=== PATIENT | female | born 1950 | race Caucasian/White ===

== ENCOUNTER 2017-10-07 19:35 | Inpatient (IN) | payer MEDICARE ==
[~2017-10-07 19:35] MED LIST: ISOVUE-370 76%-LOCM 1 ML ONE
[2017-10-07 19:51] LABS: #Basophils 0.1 thou/uL (0.0-0.2); #Eosinphils 0.1 thou/uL (0.0-0.7); #Lymphocytes 2.7 thou/uL (1.20-3.40); #Monocytes 0.7 thou/uL (0.11-0.59); #Neutrophils 4.5 thou/uL (1.40-6.50); %Basophils 1.1 % (0.0-1.0); %Eosinophils 1.8 % (0.0-10.0); %Lymphocytes 32.8 % (21.0-51.0); %Neutrophils 55.3 % (42.0-75.0); Hemoglobin 9.3 g/dL (12.0-16.0); Mean Corpuscular HGB CONC 32.7 g/dL (32.0-36.0); Mean Corpuscular Hemoglobin 30.9 pg (27.0-31.0); Mean Corpuscular Volume 94.4 fl (81.0-99.0); Mean Platelet Volume 6.3 fL (7.4-10.4); Platelet Count 420 thou/uL (130-400); RBC Distribution Width 13.5 % (11.5-14.5); White Blood Cell (WBC) Count 8.1 thou/uL (4.8-10.8)
[2017-10-07 20:00] LABS: PTT 29.2 SEC (22.9-36.1); Prothrombin Time 13.2 SEC (12.0-14.7)
[2017-10-07 20:03] LABS: ALT (SGPT) 7 U/L (8-55); AST (SGOT) 17 U/L (5-34); Albumin 3.7 g/dL (3.4-4.8); Alkaline Phosphatase 63 U/L (40-150); Anion Gap 13 mmol/L (10-20); BUN (Urea Nitrogen) 6 mg/dL (9.8-20.1); Bilirubin, Total 0.2 mg/dL (0.2-1.2); CK (CPK) 26 U/L (29-168); Calc. Creatinine Clearance 0 mL/min (70-130); Calcium 9.5 mg/dL (7.8-10.44); Carbon Dioxide 27 mmol/L (23-31); Chloride 102 mmol/L (98-107); Estimated GFR-MDRD Greater than 90; Globulin 2.7 g/dL (2.4-3.5); Glucose 86 mg/dL (80-115); Potassium 3.2 mmol/L (3.5-5.1); Protein, Total 6.4 g/dL (6.0-8.3); Sodium 139 mmol/L (136-145)
[2017-10-07 20:07] LABS: CKMB 0.9 ng/mL (0-6.6); Troponin I Less than 0.010 ng/mL (< 0.028)
[2017-10-07 20:43] LABS: Bilirubin Negative (Negative); Blood, Urine Trace (Negative); Clarity CLEAR (Clear); Glucose, Urine (Dipstick) Negative (Negative); Leukocyte Negative (Negative); Nitrite Negative (Negative); Protein, Urine (Dipstick) Negative (Neg-Trace); Specific Gravity, Urine 1.014 (1.002-1.036); Urobilinogen 0.2 mg/dL (0.2-1.0)
[2017-10-07 20:44] LABS: Bacteria/HPF None Seen HPF (None Seen); Hyaline Casts/LPF 0-3 HYALINE CAST LPF (0-3 Hyaline); RBC/HPF 0-3 HPF (0-3); Squamous Epithelial None Seen HPF (0-3); WBC/HPF 0-3 HPF (0-3)
--- NOTE | 2017-10-07 20:51 | RAD ---
PORTABLE CHEST: 10/07/17 HISTORY: Chest pain, stroke symptoms. Heart size is within normal limits. There are atherosclerotic change of the aorta. Nodular densities in the lung bases are most likely on the basis of nipple shadows. Film with nipple markers would be n eeded for confirmation. Chronic lung changes are seen. IMPRESSION: Chronic lung change. Other findings as noted above. POS: [facility]
--- NOTE | 2017-10-07 20:59 | CT ---
CT OF BRAIN PERFORMED WITHOUT CONTRAST ENHANCEMENT: 10/07/17 HISTORY: Right sided facial droop and weakness starting at 0400. There is generalized ventricular and sulcal prominence. There is fairly pronounced decreased attenuat ion of the periventricular white matter consistent with chronic white matter change. No signs of intracerebral hemorrhage or extra-axial fluid collections. Calcifications in the cavernou s portions of both internal carotid arteries are noted. The mastoid air cells and visualized sinuses are clear. IMPRESSION: No acute intracranial abnormalities. Findings telephoned to Dr. Egan at 1944 hours. POS: [facility]
[2017-10-07] MEDS ORDERED: Adacel (T-DAP) 0.5 ML VIAL ONE (21:31)
--- NOTE | 2017-10-07 22:17 | CT ---
CT ANGIO OF HEAD AND NECK PERFORMED WITH INTRAVENOUS CONTRAST ENHANCEMENT WITH 3D RECONSTRUCTIONS: 10/07/17 HISTORY: Right sided facial droop and weakness. There is a 4 to 5 mm right upper lobe nodular density which is noncalcified. The thyroid gland region is unremarkable. No significant jugular chain adenopathy. The parotid and submandibular glands appea r unremarkable. Parapharyngeal spaces are clear. There are atherosclerotic changes of the aortic arch. There is a separate origin of the left common c arotid artery. On the right side, there is calcified plaque seen along the course of the right common carotid artery and some moderate plaque formation near the origin of the right internal carotid artery with moderat e stenosis of approximately 50 to 60% near the origin. No significant stenosis of the external caroti d artery, although there is moderate plaque formation at the origin. On the left side, there is no significant stenosis of the left common carotid artery or evidence of a ny significant stenosis of the internal or external carotid arteries. The right vertebral artery is dominant with a small left vertebral with the major contribution in the basilar artery from the right vertebral. The origin in the left vertebral is difficult to assess due to venous contamination. There appears to be some mild narrowing. The intracranial portion of this study shows moderate plaque formation in the cavernous portions of b oth internal carotid arteries. There appears to be some areas of mild narrowing of the right internal carotid artery. Difficult to assess due to the plaque. The A1 segment of the right anterior cerebral artery is small which appears to be developmental. M1 segment of the right middle cerebral artery sh ows no stenosis. On the left side, the left A1 segment gives the major contribution to the more peripheral branches of the anterior cerebral arteries. There is no significant narrowing of the M1 or M2 or branches of the left middle cerebral artery. The basilar artery is tortuous with some minimal narrowing in its mid p ortion but no significant stenosis seen. IMPRESSION: 1. Moderate stenosis of 50-60% of the right internal carotid artery near its origin. Difficult t o assess due to calcified plaque. No significant stenosis of the left internal carotid artery. 2. Fairly extensive atherosclerotic plaque within the cavernous portions of both internal caroti d arteries with some narrowing to the cavernous portion of the right internal carotid artery. 3. Atretic A1 segment of the right anterior cerebral artery which is development. No signs of an y intraluminal thrombus. Findings telephoned to Dr. Egan at 2004 hours. POS: [facility]
[2017-10-07] MEDS ORDERED: Ondansetron ODT 4 MG TAB PO PRN (22:58)
[2017-10-07] MEDS ORDERED: Calcium Carbonate 500 MG ChewTAB PO PRN (22:58)
[2017-10-07] MEDS ORDERED: Ondansetron HCl/PF 4 MG/2 ML Vial IVP PRN (22:58)
[2017-10-07] MEDS ORDERED: hydrALAZINE 20 MG/ML VIAL SLOW IVP PRN (22:58)
[2017-10-07] MEDS ORDERED: Nitroglycerin 0.4 MG TAB (25 Tab Bottle) PO PRN (22:58)
[2017-10-07] MEDS ORDERED: Senokot 8.6 MG TAB PO PRN (22:58)
[2017-10-07] MEDS ORDERED: Acetaminophen 325 MG TAB PO PRN (22:58)
[2017-10-07] MEDS ORDERED: Sodium Chloride 0.9% 1,000 ML IV SCH (23:00)
[2017-10-07 23:05] LABS: Magnesium 1.9 mg/dL (1.6-2.6); Phosphorus 4.5 mg/dL (2.3-4.7)
--- NOTE | 2017-10-07 23:28 | HP ---
DATE OF ADMISSION: 10/07/2017 The patient was seen and examined on 10/07/2017. CHIEF COMPLAINT: Stroke-like symptoms. HISTORY OF PRESENT ILLNESS: The patient is a 67-year-old female who presented to the emergency room with sudden onset of right-sided weakness that started around 4:00 a.m. The weakness gradually progressed throughout the day. She presented to the ER around 7:30 p.m. The family also noticed some slurriness of speech. There was no chest pain, palpitations, double vision, blurring of vision reported. She also had some headache and numbness on the right side. No similar symptoms in the past. She is currently not on any antiplatelet agent. She follows a physician in [place]. She is unable to recall the name of her PCP. PAST MEDICAL HISTORY: 1. Hypothyroidism. 2. COPD. 3. Depression. PAST SURGICAL HISTORY: 1. Left knee surgery. 2. Hysterectomy. ALLERGIES: The patient is allergic to CODEINE. CURRENT HOME MEDICATIONS: The patient is unable to recall any of her home medications. She has Advair at the bedside. SOCIAL HISTORY: She smokes up to half pack a day for many years. She also drinks on the daily basis, less than 5 drinks a day. No drug use. Full code. Makes her own decision with the help of family. FAMILY HISTORY: Mother with stroke. REVIEW OF SYSTEMS: The following complete review of systems was negative, unless otherwise mentioned in the HPI or below: Constitutional: Weight loss or gain, ability to conduct usual activities. Skin: Rash, itching. Eyes: Double vision, pain. ENT/Mouth: Nose bleeding, neck stiffness, pain, tenderness. Cardiovascular: Palpitations, dyspnea on exertion, orthopnea. Respiratory: Shortness of breath, wheezing, cough, hemoptysis, fever or night sweats. Gastrointestinal: Poor appetite, abdominal pain, heartburn, nausea, vomiting, constipation, or diarrhea. Genitourinary: Urgency, frequency, dysuria, nocturia. Musculoskeletal: Pain, swelling. Neurologic/Psychiatric: Anxiety, depression. Allergy/Immunologic: Skin rash, bleeding tendency. PHYSICAL EXAMINATION: VITAL SIGNS: Showed temperature 98.3, respirations 12, pulse rate of 74, blood pressure of 177/77 with O2 saturation 97% on room air. GENERAL: A 67-year-old female in no apparent distress. HEENT: Head atraumatic, normocephalic. Sclerae are anicteric. Moist mucous membranes. No oral lesion. NECK: Supple, no JVD, no carotid bruit. LUNGS: Showed scattered rhonchi. No wheezing. Lungs were symmetrical. HEART: S1, S2 present. Regular rate and rhythm. No significant rubs, gallops , or murmurs appreciated. ABDOMEN: Soft, nontender, bowel sounds present. EXTREMITIES: No edema or calf tenderness. NEUROLOGIC: There was 3/5 weakness in the right upper and lower extremity. No significant sensory deficits noted. Her speech is slurry. Cranial nerves II- XII were normal on examination. There was questionable right lower half of the face weakness. Gait was not assessed. PSYCHIATRIC: The patient is alert, awake, oriented x3. SKIN: Warm and dry. LYMPH NODES: No palpable lymph nodes in the neck. PERIPHERAL VASCULAR: Radial pulses palpable bilaterally. MUSCULOSKELETAL: No joint swelling or tenderness. LABORATORY FINDINGS: CBC showed WBC 8.1 with hemoglobin 9.3, and platelet 420. PT, INR, PTT normal range. Troponins were negative. Potassium 3.2 with sodium 139, creatinine 0.57. Urinalysis was negative for wbc, bacteria. Chest x-ray by my review was negative for infiltrate. CT scan of the brain was negative for acute findings. CT angiogram of the head and neck showed moderate stenosis around 50%-60% in the right internal carotid artery. EKG by my review showed sinus rhythm with left axis deviation with poor R-wave progression. IMPRESSION: 1. Acute cerebrovascular accident causing right-sided weakness. The patient is a long-term smoker. She is currently not on any antiplatelet agent. We will start her on aspirin, which she received in the emergency room. We will get a stroke workup. Stroke team consult. 2. Moderate right internal carotid artery stenosis on the CT angiogram. We will continue antiplatelet agent. Primary care physician advised to follow. 3. Ongoing tobacco abuse. The patient was counseled. 4. Daily alcohol use. The patient was counseled. We will start her on thiamine and folic acid. 5. Hypokalemia. We will replace. 6. Chronic obstructive pulmonary disease. We will resume Advair and start p.r.n. medications. 7. Chronic normocytic normochromic anemia. The patient denies any melena or hematochezia. 8. Hypothyroidism. We will resume levothyroxine once confirmed. Plan of care was discussed with the patient in detail, she stated understanding. TESSD
[2017-10-07 23:34] VITALS: BMI 16.4
[2017-10-08] MEDS: NS 0.9% w/ 40 MEQ KCL 1,000 ML IV SCH ×2 (00:33→20:00)
[2017-10-08 05:01] LABS: Cardiac Risk 3.1 (Less than 4.5)
[2017-10-08 05:51] LABS: Folate (Folic Acid) 11.7 ng/mL (7.0-31.4)
[2017-10-08] MEDS: Mometasone/Formoterol 120 PUFF INHALER INH SCH ×2 (06:49→18:17)
[2017-10-08] MEDS: Enoxaparin Sodium 30 MG/0.3 ML SYRINGE SC SCH (08:28)
[2017-10-08] MEDS: Multivit, Therapeutic 1 TAB PO SCH (08:29)
[2017-10-08] MEDS: Aspirin 325 mg Enteric Coated Tablet PO SCH (08:29)
[2017-10-08] MEDS: Folic Acid 1 MG TAB PO SCH (08:29)
[2017-10-08] MEDS: Famotidine 20 MG TAB PO SCH ×2 (08:29→20:27)
[2017-10-08] MEDS: Docusate 100 MG CAP PO SCH ×2 (08:29→20:27)
[2017-10-08] MEDS ORDERED: Prevnar 13-Val Conj/PF 0.5 ML SYRINGE IM ONE ×2 (09:00→10:30)
--- NOTE | 2017-10-08 15:26 | MRI ---
BRAIN MRI WITHOUT CONTRAST: HISTORY: CVA. Right-sided facial droop. COMPARISON: None. TECHNIQUE: Brain MRI is performed without intravenous Gadolinium administration. Multisequential, multiplanar i maging is performed. FINDINGS: The calvarium has a normal T1 marrow signal intensity. Midline brain parenchymal structures are unre markable. No hemorrhage on the axial gradient echo sequence. Central arterial flow voids are maintained. There is restricted diffusion along the posterior left l entiform nucleus and mid portion of the left candelaria radiata. Additional areas of restricted diffusio n are not appreciated. Confluent T2 and FLAIR white matter hyperintensities due to chronic small-vessel ischemic changes are noted. Age appropriate atrophy. Cortical pascal-white matter differentiation is preserved. Ventricles and sulci are patent and symmetric. Adequate aeration of the sinuses and mastoid air cells. IMPRESSION: Acute infarct involving the left lentiform nucleus and left candelaria radiata. POS: [facility]
--- NOTE | 2017-10-08 17:09 | PDOC.PN ---
- Subjective Encounter Start Date: 10/08/17 Encounter Start Time: 16:55 Subjective: f/u for acute ischemic CVA of L lentiform nucleus with R-sided weakness -: and paresthesias. Receiving ASA and Lipitor. Some improvement in facial -: weakness and paresthesias. - Objective Resuscitation Status: Resuscitation Status FULL:Full Resuscitation MAR Reviewed: Yes Vital Signs & Weight: Vital Signs (12 hours) Temp Pulse Pulse Pulse Resp BP BP 10/08/17 15:45 98.8 F 65 18 10/08/17 12:21 65 70 139/76 143/77 H 10/08/17 10:50 97.4 F L 76 20 10/08/17 08:00 98.3 F 72 20 10/08/17 07:33 67 69 144/72 H 155/76 H 10/08/17 07:22 98.3 F 72 20 BP Pulse Ox 10/08/17 15:45 142/74 H 99 10/08/17 12:21 10/08/17 10:50 149/79 H 95 10/08/17 08:00 10/08/17 07:33 10/08/17 07:22 144/72 H 92 L Weight Admit Weight 81 lb 3.2 oz Weight 81 lb 3.2 oz I&O: 10/07/17 10/08/17 10/09/17 06:59 06:59 06:59 Intake Total 60 600 Balance 60 600 Result Diagrams: 10/07/17 19:39 10/07/17 19:39 Additional Labs: Laboratory Tests 10/07/17 10/07/17 10/08/17 19:39 19:39 04:04 Hgb 9.3 L Hct 28.4 L Plt Count 420 H Phosphorus 4.5 Magnesium 1.9 Triglycerides 41 Cholesterol 160 LDL Cholesterol, Calc 101 HDL Cholesterol 51 Vitamin B12 Folate 10/08/17 04:04 Hgb Hct Plt Count Phosphorus Magnesium Triglycerides Cholesterol LDL Cholesterol, Calc HDL Cholesterol Vitamin B12 279 Folate 11.70 Radiology Reviewed by me: Yes (MRI Brain - acute infarct L lentiform nucleus, candelaria radiata) EKG Reviewed by me: Yes (Tele - SR in 70's) Phys Exam - Physical Examination Constitutional: NAD dysarthric, alert, responsive HEENT: PERRLA, moist MMs, sclera anicteric, oral pharynx no lesions Neck: no nodes, no JVD, supple Respiratory: no wheezing, no rales, no rhonchi, clear to auscultation bilateral S1, S2 Cardiovascular: RRR, no significant murmur, no rub, gallop Gastrointestinal: soft, non-tender, no distention, positive bowel sounds Musculoskeletal: no edema, pulses present mild dysarthria R orange picker strength decreased compared to L Neurological: moves all 4 limbs Psychiatric: normal affect, A&O x 3 Skin: no rash, normal turgor, cap refill <2 seconds Dx/Plan (1) Acute CVA (cerebrovascular accident) Code(s): I63.9 - CEREBRAL INFARCTION, UNSPECIFIED Status: Acute Comment: Continue ASA, Lipitor, ? outpt [employer], tobacco cessation (2) Dysarthria Code(s): R47.1 - DYSARTHRIA AND ANARTHRIA Status: Acute Comment: Secondary to #1, see above (3) Dyslipidemia Code(s): E78.5 - HYPERLIPIDEMIA, UNSPECIFIED Status: Chronic Comment: Lipitor 20mg HS (4) Tobacco abuse Code(s): Z72.0 - TOBACCO USE Status: Chronic Comment: Tobacco cessation resources (5) Normocytic anemia Code(s): D64.9 - ANEMIA, UNSPECIFIED Status: Chronic Comment: Likely multifactorial and secondary to poor nutritional status, serial H/H, GI follow up EGD/colonoscopy - Plan plan discussed w/ family, PT/OT, addiction social worker, speech therapy, out of bed/ ambulate, DVT proph w/SCDs Stable overall -: Continue general stroke protocol -: ASA 325mg daily -: Lipitor 20mg HS -: 2D echo pending * Likely home in am 5.04.18
[2017-10-08] MEDS ORDERED: Atorvastatin Calcium 20 MG TAB PO SCH (21:00)
--- NOTE | 2017-10-08 23:46 | CON ---
DATE OF CONSULTATION: 10/09/2017 REFERRING PHYSICIAN: Dr. Yossi Nguyen. REASON FOR CONSULTATION: Stroke. HISTORY OF PRESENT ILLNESS: Ms. Bailey is a pleasant 67-year-old female who has been consi dered for evaluation of stroke. Patient reports that on yesterday morning, she had a sudden onset of right-sided weakness. She noted that her speech was also getting slurred. She also started noticin g numbness and tingling on the right upper and right lower extremity. This prompted her to present t o the [place] [facility] late last night. After arrival to the emergency room, she had a CT s can of the head done, which showed no acute intracranial abnormality. She was admitted for further w orkup. She reports that since the admission to the hospital, her symptoms have improved. She denies any headache, chest pain, palpitation, nausea, vomiting, abdominal pain, weakness in upper and lower extremities. She does have numbness on the right upper and right lower extremity, but that is impro ving. PAST MEDICAL HISTORY: Significant for hypothyroidism, COPD, and depression. PAST SURGICAL HISTORY: Significant for left knee surgery and hysterectomy. SOCIAL HISTORY: She smokes about a half pack per day. She drinks alcohol on a daily basis. She den ies illicit drug use. FAMILY HISTORY: Significant for mother with history of stroke. CURRENT MEDICATIONS: Please review MAR. ALLERGIES: Include CODEINE. REVIEW OF SYSTEMS: As mentioned above in the HPI, is negative. PHYSICAL EXAMINATION: VITAL SIGNS: Blood pressure 142/74, pulse of 65, temperature of 98.8, respirations of 18, O2 sats 99 % on room air. GENERAL: Well-developed, well-nourished female in no apparent distress. RESPIRATORY: Clear to auscultation bilaterally. CARDIOVASCULAR: Regular rate and rhythm. NEUROLOGIC: Mental status: Patient is awake, alert, oriented x3. Speech and language: Fluent spee ch. Cranial nerves: Pupils are 3 mm and reactive. Visual stark are intact. Extraocular muscles a re intact. No nystagmus. Face is symmetric. Tongue and uvula midline. Motor exam showed normal to ne and bulk with 5/5 strength in both upper and lower extremities. There is no pronator drift noted. Sensory: Sensation is intact and symmetric. Deep tendon reflexes 2+ reflex in both upper and lowe r extremities. Babinski: Plantar responses flexion bilaterally. Coordination intact to finger-nose -finger and finger tapping bilaterally. LABORATORY DATA: Reviewed, which included CBC, CMP, lipid profile, B12, folate, troponin, CK-MB, CPK , urinalysis, which is significant for hemoglobin 9.3, hematocrit 28.4, platelet counts of 420. Pota ssium of 3.2, total cholesterol 160, LDL of 101, HDL of 51, and triglycerides of 41, otherwise unrema rkable. IMAGING STUDIES: MRI brain without contrast was reviewed, which showed acute left MCA distribution o f ischemic infarct. IMPRESSION: 1. Acute left middle cerebral artery distribution ischemic infarct. 2. Hypercholesterolemia. ASSESSMENT AND PLAN: Ms. Bailey is a pleasant 67-year-old female who presented with the ac [place] onset of right-sided weakness, this has gradually improved. She did have MRI brain done, which s howed new acute ischemic infarct involving right middle cerebral artery distribution. This is likely secondary to her underlying medical risk factors. I have explained to her that she needs to quit sm oking. I also explained that she needs to control her diet and exercise, and take anticholesterol me dication on a daily basis. She will also benefit from aspirin 325 mg daily for secondary stroke prev ention. If physical therapy agrees, patient can be discharged to home with outpatient physical thera py and occupational therapy. No further neurological workup needed from my standpoint. Thank you for consultation.
[2017-10-09 05:17] LABS: Anion Gap 11 mmol/L (10-20); BUN (Urea Nitrogen) 8 mg/dL (9.8-20.1); Calc. Creatinine Clearance 60 mL/min (70-130); Calcium 9.3 mg/dL (7.8-10.44); Carbon Dioxide 28 mmol/L (23-31); Chloride 104 mmol/L (98-107); Estimated GFR-MDRD Greater than 90; Glucose 91 mg/dL (80-115); Potassium 3.3 mmol/L (3.5-5.1); Sodium 140 mmol/L (136-145)
[2017-10-09] MEDS: Mometasone/Formoterol 120 PUFF INHALER INH SCH (07:31)
[2017-10-09] MEDS: Famotidine 20 MG TAB PO SCH (09:00)
[2017-10-09] MEDS: Aspirin 325 mg Enteric Coated Tablet PO SCH (09:00)
[2017-10-09] MEDS: Docusate 100 MG CAP PO SCH (09:00)
[2017-10-09] MEDS: Folic Acid 1 MG TAB PO SCH (09:00)
[2017-10-09] MEDS: Enoxaparin Sodium 30 MG/0.3 ML SYRINGE SC SCH (09:00)
[2017-10-09] MEDS: Multivit, Therapeutic 1 TAB PO SCH (09:00)
[2017-10-09 11:31] VITALS: BP 143/82; TEMP 97.9
--- NOTE | 2017-10-09 13:06 | DIS ---
DATE OF ADMISSION: 10/07/2017 DATE OF DISCHARGE: 10/09/2017 DISCHARGE DIAGNOSES: 1. Acute ischemic cerebrovascular accident of the left lentiform nucleus. 2. Dysarthria secondary to #1, improved. 3. Dyslipidemia. 4. Tobacco abuse. 5. Chronic normocytic anemia. 6. Hypothyroidism. CONSULTATIONS: Dr. Vicki Bean with Neurology Service. PERTINENT LABORATORY DATA AND X-RAY FINDINGS: Potassium ranged between 3.2 to 3.3, phosphorus 4.5, m agnesium 1.9, total cholesterol 160, triglycerides 41, HDL 51, LDL 101. Vitamin B12 level 279, folat e 11.7. CBC showed a hemoglobin of 9.3, hematocrit 28.4, MCV 94. CT of the brain without contrast d ated 10/07/2017 showed no acute intracranial process. CT angiogram of [place] dated 018 showed moderate stenosis at 50%-60% of the right internal carotid artery. No significant stenosi s of the left internal carotid. MRI of the brain dated 10/08/2017 showed acute infarct in the left l entiform nucleus and left candelaria radiata. A 2D transthoracic echocardiogram dated 10/08/2017 showed ejection fraction of 60%-65%. No intracardiac mass or thrombus. HOSPITAL COURSE: The patient was admitted to the stroke unit after presenting with right-sided weakn ess and difficulty with speech. The patient underwent general stroke protocol including CT imaging o f the brain showing no acute intracranial process. The patient underwent subsequent MRI imaging of t he brain showing evidence of an acute ischemic infarct in the left lentiform nucleus distribution. T he patient was continued on aspirin 325 mg daily, and underwent general stroke protocol. The patient was initiated on antilipid therapy and counseled regarding smoking cessation. The patient was evalu ated by the Neurology Service with recommendations for risk factor modification. Due to the patient' s minimal deficits, the patient was deemed an appropriate candidate for outpatient speech and physica l therapy through home health services. The patient overall remained clinically stable and was ambul atory without assistance or difficulty. Vital signs remained stable and telemetry monitoring showed sinus mechanism without evidence of acute arrhythmia or dysrhythmia. I examined the patient at the t aliza of discharge and discussed pertinent radiographic and laboratory studies with discharge planning instructions. The patient and family verbalized understanding and agreement and ready for discharge on 10/09/2017. DISCHARGE MEDICATIONS: 1. Lovastatin 10 mg p.o. at bedtime. 2. Enteric coated aspirin 325 mg 1 tab p.o. daily. 3. Levothyroxine 175 mcg p.o. daily. FOLLOWUP: The patient will follow up with her primary care provider, Lorene Edmond in [place], [place] within 7 days. CONDITION ON DISCHARGE: Stable. ACTIVITY: ad boris. DIET: Heart healthy. CODE STATUS: FULL. DISPOSITION: Home on 10/09/2017.
== END 2017-10-09 14:23 | disposition home or self-care (01) | DRG 65 ==
LOC: ERS 19:35 → 2SE 20:56
PROVIDERS: ADMIT Internal Medicine; ATTEND Internal Medicine
DX: I63.9 Cerebral infarction, unspecified (principal); G81.91 Hemiplegia, unspecified affecting right dominant side; R47.1 Dysarthria and anarthria; E78.5 Hyperlipidemia, unspecified; F17.210 Nicotine dependence, cigarettes, uncomplicated; D64.9 Anemia, unspecified; E03.9 Hypothyroidism, unspecified; J44.9 Chronic obstructive pulmonary disease, unspecified; F32.9 Major depressive disorder, single episode, unspecified; I65.21 Occlusion and stenosis of right carotid artery; E87.6 Hypokalemia
CPT/HCPCS: 36415; 36416; 70450; 70496; 70498; 70551; 71045; 80048; 80053; 80061; 81003; 81015; 82550; 82553; 82607; 82746; 83735; 84100; 84484; 85025; 90471; 90670; 90715; 93005; 93306; 94760; G0009; G8978-GP-CL; G8979-GP-CL; G8980-GP-CL; G8987-GO-CI; G8988-GO-CI; G8989-GO-CI; G8999-GN-CK; G9186-GN-CI; J1650

== ENCOUNTER 2018-07-11 08:53 | Inpatient (IN) | payer MEDICARE, SELFPAY ==
--- NOTE | 2018-07-11 09:47 | RAD ---
TWO VIEWS OF THE LEFT HIP: COMPARISON: None. HISTORY: Fall this morning with left hip pain. FINDINGS: Two views of the left hip show a fracture of the left femoral neck. Surrounding soft tissue swelling is seen. No degenerative changes are present. IMPRESSION: Left femoral neck fracture. POS: [facility]
--- NOTE | 2018-07-11 09:48 | RAD ---
AP VIEW OF THE PELVIS: COMPARISON: None. HISTORY: Fall with left hip pain. FINDINGS: A single view of the pelvis shows a fracture of the left femoral neck. No dislocation is seen. No f racture of the bones of the pelvis are seen. IMPRESSION: Left femoral neck fracture. POS: [facility]
--- NOTE | 2018-07-11 10:21 | RAD ---
SINGLE VIEW OF THE CHEST: COMPARISON: 10/07/2017. HISTORY: Mechanical fall this morning with right rib pain and left leg pain. Preoperative radiograph. Hip fr acture. FINDINGS: A single view of the chest shows a normal-size cardiomediastinal silhouette with atherosclerotic calc ifications in the aorta. A calcified granuloma projects over the right lower lobe. There is no evid ence of consolidation or pleural effusion. IMPRESSION: No evidence of acute cardiopulmonary disease. POS: [facility]
[2018-07-11] MEDS ORDERED: Morphine 2 MG/ML SYRINGE ONE (10:27)
[2018-07-11] MEDS ORDERED: Ondansetron PF 4 MG/2 ML Vial ONE (10:27)
[2018-07-11 10:36] LABS: #Basophils 0.1 thou/uL (0.0-0.2); #Eosinphils 0.1 thou/uL (0.0-0.7); #Lymphocytes 1.6 thou/uL (1.20-3.40); #Monocytes 0.9 thou/uL (0.11-0.59); #Neutrophils 9.7 thou/uL (1.40-6.50); %Basophils 0.6 % (0.0-1.0); %Eosinophils 0.8 % (0.0-10.0); %Lymphocytes 12.7 % (21.0-51.0); %Neutrophils 78.9 % (42.0-75.0); Hemoglobin 13.2 g/dL (12.0-16.0); Mean Corpuscular HGB CONC 33.1 g/dL (32.0-36.0); Mean Corpuscular Hemoglobin 32.6 pg (27.0-31.0); Mean Corpuscular Volume 98.5 fL (78.0-98.0); Mean Platelet Volume 7.5 fL (7.4-10.4); Platelet Count 249 thou/uL (130-400); RBC Distribution Width 13.2 % (11.5-14.5); Red Blood Cell (RBC) Count 4.04 mill/uL (4.20-5.40); White Blood Cell (WBC) Count 12.3 thou/uL (4.8-10.8)
[2018-07-11 10:59] LABS: ALT (SGPT) 25 U/L (8-55); AST (SGOT) 23 U/L (5-34); Albumin 4.1 g/dL (3.4-4.8); Alkaline Phosphatase 107 U/L (40-150); Anion Gap 21 mmol/L (10-20); BUN (Urea Nitrogen) 11 mg/dL (9.8-20.1); Bilirubin, Total 0.7 mg/dL (0.2-1.2); Calc. Creatinine Clearance 0 mL/min (70-130); Calcium 10.2 mg/dL (7.8-10.44); Carbon Dioxide 19 mmol/L (23-31); Chloride 96 mmol/L (98-107); Estimated GFR-MDRD 88; Globulin 2.8 g/dL (2.4-3.5); Glucose 78 mg/dL (80-115); Potassium 4.1 mmol/L (3.5-5.1); Protein, Total 6.9 g/dL (6.0-8.3); Sodium 132 mmol/L (136-145)
--- NOTE | 2018-07-11 11:15 | CT ---
CT HEAD NONCONTRAST: HISTORY: Fall. Head injury. COMPARISON: 10/07/2017. FINDINGS: There is no evidence of acute intracranial hemorrhage or infarct. Prominent chronic ischemic small-v essel disease is again demonstrated. A lacunar infarct in the right basal ganglia has developed sinc e the previous exam. No mass effect or shift of midline structures. Visualized paranasal sinuses re main well aerated. IMPRESSION: 1. No acute intracranial abnormalities are demonstrated. 2. Prominent small-vessel disease. POS: [facility]
--- NOTE | 2018-07-11 11:16 | CT ---
CT CERVICAL SPINE NONCONTRAST: HISTORY: Fall. Neck injury. FINDINGS: Vertebral body height and alignment are maintained. Cervicothoracic junction is intact. Partial fus ion of the C2 and C3 vertebrae. Osteophytosis and multilevel disk space narrowing and disk bulges. No acute fracture or dislocation. IMPRESSION: Degenerative changes cervical spine. No acute osseous abnormalities are demonstrated. POS: [facility]
[2018-07-11 11:33] LABS: Acetaminophen Less than 6.0 mcg/mL (10.0-30.0); Alcohol Less than 10 mg/dL (Less than 10); Salicylate Less than 8.0 mg/dL (15.0-30.0)
[2018-07-11] MEDS ORDERED: Dextrose 50% Abboject 50 ML SYRINGE SLOW IVP PRN (12:52)
[2018-07-11] MEDS ORDERED: Dextrose 5% in Water 1,000 ML IV PRN (12:52)
[2018-07-11] MEDS ORDERED: hydrALAZINE 20 MG/ML VIAL SLOW IVP PRN (12:52)
[2018-07-11] MEDS ORDERED: Morphine 4 MG/ML VIAL SLOW IVP PRN (12:52)
[2018-07-11] MEDS ORDERED: Promethazine HCl 25 MG/ML VIAL IM PRN (12:52)
[2018-07-11] MEDS ORDERED: Ondansetron PF 4 MG/2 ML Vial IVP PRN (12:52)
[2018-07-11] MEDS: Sodium Chloride 0.9% 1,000 ML IV SCH ×2 (13:23→20:33)
[2018-07-11] MEDS: Acetaminophen 1,000 MG in Premix Bag 1 BAG IVPB SCH ×2 (13:23→20:32)
--- NOTE | 2018-07-11 13:29 | HP ---
REFERRING PHYSICIAN: Dr. Marcial. TRAUMA SURGEON: Dr. Jeancarlos Garcia. CONSULTING PHYSICIAN: Dr. Mojica, Orthopedic Surgery. HISTORY OF PRESENT ILLNESS: Ms. Bailey is a 68-year-old female who presented to the emergency department after falling today with left-sided hip pain. The patient reports falling several times about four times over the last two weeks. She says that she has fallen because her legs feel weak and denies loss of consciousness or striking her head when she falls. She also denies palpitations, lightheadedness, dizziness, and feeling fatigued. She does report over the past couple weeks, she has also been feeling nauseous and having difficulty keeping foot down. She does say that she is able to drink water without issues. She is a daily drinker and has not had any issues, consuming about 4 to 6 beers per day. Otherwise, she denies vomiting and diarrhea. Her last bowel movement was three days ago and she has been urinating with clear yellow urine. PAST MEDICAL HISTORY: Hypothyroidism, hypertension, and TIA in September of 2017. PAST SURGICAL HISTORY: Hysterectomy and left knee surgery. SOCIAL HISTORY: The patient reports smoking one pack per day of tobacco cigarettes. Drinks 4 to 6 beers every day and denies drug use. MEDICATIONS: Aspirin, lisinopril, and levothyroxine. ALLERGIES: CODEINE. PHYSICAL EXAMINATION: VITAL SIGNS: Heart rate 78, blood pressure 153/79, respirations 18, oxygen saturation 98% on room air. PRIMARY ASSESSMENT: Airway intact. Adequate breath sounds bilaterally. 2+ distal pulses in the bilateral radials, femorals and DPs. GCS is 15. Gross motor and sensation intact. No lacerations or bruising or external bleeding noted. SECONDARY SURVEY: HEAD: Normocephalic and atraumatic. No gross palpable skull deformities or tenderness. EYES: Pupils 3 to 2, equal, round, reactive to light and accommodation. ENT: No hemotympanum. No epistaxis. No septal hematoma. Midface is stable to manipulation. No blood in the oropharynx. Dentition intact. No anterior neck injury/crepitus/tenderness. C-SPINE: No step-offs or deformities. Nontender. No C-collar in place. Right lateral chest wall tenderness with no crepitus. No abrasions or ecchymosis noted. Equal chest rise and fall. ABDOMEN: Soft, nontender, nondistended. PELVIS: Stable to manipulation. Nontender with no abrasions or ecchymosis noted. RECTAL: Deferred. GENITOURINARY: Deferred. EXTREMITIES: Left lower extremity is shortened. No abrasions or ecchymosis noted. 2+ radial/femoral/DP/PT pulses present bilaterally. BACK/SPINE: No step-offs or deformities. Nontender to palpation of the thoracic and lumbar spine. No abrasions or ecchymosis noted. 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 Gross normal sensation x4 extremities. LABORATORY FINDINGS: White blood cell count 12.3, hemoglobin 13.2, hematocrit 39.8, platelets 249. Sodium 132, potassium 4.1, chloride 96, carbon dioxide 19, BUN 11, creatinine 0.67, glucose 78, and lactic acid 1.0. DIAGNOSTIC FINDINGS: X-ray of the pelvis demonstrates a left femoral neck fracture. X-ray of the hip also demonstrates left femoral neck fracture. CT of the brain demonstrates, no acute intracranial abnormalities are demonstrated. Prominent small-vessel disease. CT of the C-spine demonstrates degenerative changes of the cervical spine, no acute osseous abnormalities are demonstrated. Chest x-ray demonstrates no evidence of acute cardiopulmonary disease. ASSESSMENT: 1. Multiple recent falls. 2. Left femoral neck fracture. 3. Hypochloremic hyponatremia, likely due to dehydration. 4. Alcohol abuse. 5. History of hypertension, hypothyroidism, and recent transient ischemic attack. PLAN: The patient will be admitted to the telemetry floor for further monitoring. She is to go to the OR with Dr. Mojica of Ortho Surgery. We will need to complete an echo before surgery to rule out significant heart failure. The patient reports recent falls and TIA, which is concerning for an arrhythmia and warrants further workup. We will keep the patient n.p.o. and give IV fluids with normal saline for now until further planning for OR. We will have the patient receive Serax to prevent alcohol withdrawal. We will hold all home medications at this time. We will hold chemo DVT prophylaxis. Pain controlled with IV Tylenol, p.r.n. Flexeril, and p.r.n. morphine at this time. PT/OT to see the patient postoperatively for discharge planning purposes and therapy. The patient was seen and examined by Dr. Perez this afternoon in the emergency department. Job ID: [id number]
[2018-07-11] MEDS ORDERED: Prevnar 13-Val Conj/PF 0.5 ML SYRINGE IM ONE (14:00)
[2018-07-11] MEDS ORDERED: CEFAZOLIN 2 GM/50 ML-DEXTROSE 2 GM in Premix Bag 1 BAG IVPB SCH (14:00)
--- NOTE | 2018-07-11 14:12 | CON ---
DATE OF CONSULTATION: 07/11/2018 CHIEF COMPLAINT: Left hip pain. HISTORY OF PRESENT ILLNESS: Ms. Bailey is a 68-year-old female who presented today to the emergency department with severe left hip pain. She has fallen several times over the last week. Three days ago, she had severe pain in the left hip after a fall. However, she was able to continue to ambulate. Yesterday, she lost her balance again. After that fall, she was unable to further ambulate. She was taken to the emergency department and found to have a left femoral neck fracture. This was displaced. She has been admitted to the hospital now. She is resting comfortably. She has received morphine for pain control. She denies other injuries currently. She normally uses a walker occasionally, but for the most part, ambulates without assistive device. Her balance is poor per her family, however. She drinks alcohol. PAST MEDICAL HISTORY: Positive for hypothyroidism, hypertension, history of TIA in September of 2017, currently on aspirin. PAST SURGICAL HISTORY: Hysterectomy and left knee surgery. SOCIAL HISTORY: The patient reports continued smoking as well as alcohol use daily. She denies drug use. Family is at the bedside. MEDICATIONS: Include: 1. Lisinopril. 2. Levothyroxine. 3. Aspirin. ALLERGIES: TO CODEINE. REVIEW OF SYSTEMS: Positive for left hip pain with movement. Otherwise, negative 10-point review of systems. IMAGES: X-rays of the pelvis and left hip demonstrated displaced femoral neck fracture of the left proximal femur. PHYSICAL EXAMINATION: VITAL SIGNS: Temperature is 98.2, pulse is 77, respiratory rate is 20, oxygen saturations 95%, blood pressure is 155/77. GENERAL: The patient is alert and oriented, lying supine, talkative, in no apparent distress. RESPIRATORY: Breathing comfortably. ABDOMEN: Soft, nontender, nondistended. MUSCULOSKELETAL: The patient's left lower extremity has mild shortening as well as external rotation. She has no significant swelling or ecchymosis. She is able to flex and extend the foot and ankle. She reports normal sensation in the foot. Palpable dorsalis pedis pulses. IMPRESSION: Elderly female with a left femoral neck fracture. PLAN: Regarding the patient's hip, I had a discussion with her regarding treatment options. I think she would benefit from hemiarthroplasty of the hip to restore the ability to mobilize and promote early mobilization to prevent complications of bedrest. Risks do include infection, pain, scarring, DVT, PE, hardware failure, dislocation, and others. She could have a cardiac or a neurologic complication with surgery. She does have a history of TIA, so would be at elevated risk for stroke. The General Surgery Trauma Service has ordered an echocardiogram to be done prior to surgery, so I will hold off today. Hopefully, we can accomplish surgery tomorrow morning if she is cleared. Job ID: [id number]
[2018-07-11] MEDS: Morphine 4 MG/ML VIAL SLOW IVP PRN (16:25)
[2018-07-11] MEDS: Oxazepam 10 MG CAP PO SCH ×2 (16:26→20:33)
[2018-07-11] MEDS: Famotidine/PF 20 mg/2ml Vial SLOW IVP SCH (20:33)
[2018-07-11] MEDS: Senokot S 8.6-50 MG TAB PO SCH (20:33)
[2018-07-12] MEDS: Acetaminophen 1,000 MG in Premix Bag 1 BAG IVPB SCH ×2 (02:20→07:57)
[2018-07-12] MEDS: Oxazepam 10 MG CAP PO SCH ×3 (05:41→21:54)
[2018-07-12 05:48] LABS: #Basophils 0.1 thou/uL (0.0-0.2); #Eosinphils 0.2 thou/uL (0.0-0.7); #Lymphocytes 1.9 thou/uL (1.20-3.40); #Monocytes 0.9 thou/uL (0.11-0.59); #Neutrophils 5.9 thou/uL (1.40-6.50); %Basophils 0.9 % (0.0-1.0); %Eosinophils 2.4 % (0.0-10.0); %Lymphocytes 20.8 % (21.0-51.0); %Monocytes 9.6 % (0.0-10.0); %Neutrophils 66.3 % (42.0-75.0); Hemoglobin 11.6 g/dL (12.0-16.0); Mean Corpuscular HGB CONC 32.8 g/dL (32.0-36.0); Mean Corpuscular Hemoglobin 32.7 pg (27.0-31.0); Mean Corpuscular Volume 99.6 fL (78.0-98.0); Mean Platelet Volume 7.9 fL (7.4-10.4); Platelet Count 238 thou/uL (130-400); RBC Distribution Width 13.2 % (11.5-14.5); Red Blood Cell (RBC) Count 3.55 mill/uL (4.20-5.40)
[2018-07-12 06:12] LABS: Anion Gap 16 mmol/L (10-20); BUN (Urea Nitrogen) 8 mg/dL (9.8-20.1); Calc. Creatinine Clearance 53 mL/min (70-130); Carbon Dioxide 19 mmol/L (23-31); Chloride 104 mmol/L (98-107); Estimated GFR-MDRD Greater than 90; Glucose 73 mg/dL (80-115); Magnesium 1.5 mg/dL (1.6-2.6); Phosphorus 3.2 mg/dL (2.3-4.7); Potassium 3.7 mmol/L (3.5-5.1); Sodium 135 mmol/L (136-145)
[2018-07-12] MEDS ORDERED: CEFAZOLIN/Water 2 GM/20 ML SYRINGE SLOW IVP SCH ×2 (07:30→14:30)
[2018-07-12] MEDS: Sodium Chloride 0.9% 1,000 ML IV SCH ×3 (07:56→21:55)
[2018-07-12] MEDS: Morphine 4 MG/ML VIAL SLOW IVP PRN (07:59)
[2018-07-12] MEDS: Famotidine/PF 20 mg/2ml Vial SLOW IVP SCH ×2 (08:04→21:54)
[2018-07-12] MEDS: Polyethylene Glycol 3350 17 GM Packet PO SCH (08:12)
[2018-07-12] MEDS: Senokot S 8.6-50 MG TAB PO SCH ×2 (08:12→21:54)
[2018-07-12] MEDS ORDERED: Magnesium 2 GM/50 ML 2 GM in Premix Bag 1 BAG IVPB SCH (08:15)
[2018-07-12] MEDS ORDERED: Potassium Phosphate 15 MMOL in Sodium Chloride 0.9% 250 ML 250 ML IVPB SCH ×2 (08:15→13:30)
[2018-07-12] MEDS ORDERED: Acetaminophen 1,000 MG in Premix Bag 1 BAG IVPB SCH (08:30)
[2018-07-12] MEDS ORDERED: Potassium Phosphate 15 MMOL, Magnesium Sulfate 2 GM in Sodium Chloride 0.9% 250 ML 250 ML IVPB SCH (08:30)
[2018-07-12] MEDS ORDERED: CEFAZOLIN 2 GM/50 ML BAG ONE (10:35)
[2018-07-12] MEDS ORDERED: Morphine 2 MG/ML SYRINGE ONE (11:31)
[2018-07-12] MEDS ORDERED: Acetaminophen 500 MG TAB PO SCH (12:00)
[2018-07-12] MEDS ORDERED: Neomycin-Polymyxin 1 ML AMP ONE ×2 (12:34→12:35)
[2018-07-12] MEDS ORDERED: Fentanyl 100 MCG/2 ML VIAL ONE ×3 (12:45→14:53)
[2018-07-12] MEDS ORDERED: Midazolam HCl 2 mg/2 ml Vial ONE (12:58)
[2018-07-12] MEDS ORDERED: Magnesium Sulfate 3 GM in Sodium Chloride 0.9% 100 ML IVPB SCH (13:30)
[2018-07-12 13:38] VITALS: BMI 16.6
--- NOTE | 2018-07-12 14:25 | PRG ---
DATE OF SERVICE: SUBJECTIVE: The patient was seen this morning lying in bed on her right side. She has been n.p.o. since midnight for OR today with Dr. Mojica for fixation of her left femoral neck fracture. She reported pain was well controlled and had no signs of alcohol withdrawal. She is on tele and echo was completed this morning. She denies nausea, vomiting, or diarrhea. PHYSICAL EXAMINATION: VITAL SIGNS: Temperature 97.3, pulse 72, respirations 16, oxygen saturation 95% on room air, blood pressure 158/70. GENERAL: Well-appearing middle-aged female, lying in bed on her right side. No signs of acute distress. NEUROLOGIC: GCS is 15. Alert and oriented x3. Gross motor sensation intact. Pupils equal, round, reactive to light. PULMONARY: No signs of acute distress. Equal chest rise and fall. Lung stark clear bilaterally. HEART: Regular rate and rhythm. No murmurs, gallops, or rubs. GI: Abdomen is soft, nontender, nondistended. Positive bowel sounds. EXTREMITIES: Gross motor and sensation intact. Tenderness to the left thigh. 2+ pulses in all extremities. No significant swelling noted. LABORATORY FINDINGS: White blood cell count is 9.0, hemoglobin 11.6, hematocrit 35.4, and platelets 238. Sodium 135, potassium 3.7, chloride 104, carbon dioxide 19, BUN 8, creatinine 0.63, phos 3.2, magnesium 1.5. DIAGNOSTIC FINDINGS: Echo completed demonstrates ejection fraction estimated at 55% to 60%. EA flow reversal noted suggestive of diastolic dysfunction. Mild mitral regurgitation is present, mild tricuspid regurgitation. ASSESSMENT: 1. Multiple recent falls. 2. Left femoral neck fracture. 3. Hyponatremia. 4. Hypokalemia. 5. Hypophosphatemia. 6. Hypomagnesemia. 7. History of alcohol abuse. 8. Hypertension. 9. Hypothyroidism. 10. Recent transient ischemic attack. PLAN: The patient will remain n.p.o. with normal saline at 120 an hour until she goes to OR with Dr. Mojica for fixation of her left femoral neck. Electrolytes will be replaced today. We will continue current pain regimen, but will be switched to completely p.o. medications postoperatively. We will receive physical and occupational therapy as well as a rehab screen postoperatively. The patient was seen and examined by Dr. Ramos this morning during rounds. Job ID: [id number]
--- NOTE | 2018-07-12 15:25 | OP ---
DATE OF PROCEDURE: 07/12/2018 PROCEDURE PERFORMED: Left hip hemiarthroplasty, bipolar. PREOPERATIVE DIAGNOSIS: Left femoral neck fracture. POSTOPERATIVE DIAGNOSIS: Left femoral neck fracture. COMPLICATIONS: None. ESTIMATED BLOOD LOSS: 150 mL. ANESTHESIA: General. EMBEDDED DEVELOPER: Sarah Taveras. IMPLANTS: DePuy Bipolar [place] stem size 6, size 42 bipolar shell with a +5 femoral head. INDICATIONS: Ms. Bailey is a 68-year-old female, who fell. She fractured the left femoral neck. She was indicated for hemiarthroplasty of the hip to restore mobility and prevent complications of prolonged bedrest. Risks have been reviewed in detail. She elected to proceed with the operation. DESCRIPTION OF PROCEDURE: Ms. Bailey was identified in the preoperative holding area. Her correct extremity was marked. She was carried to the operating room. She was positioned supine. General anesthesia was induced. A multidisciplinary time-out was performed. The left lower extremity was prepped and draped in sterile fashion. We began the procedure with a posterior approach to the hip. We dissected down through the subcutaneous tissues to the fascia, which was incised. We exposed the short external rotators of the hip. These were subperiosteally divided from the proximal femur. We performed a capsulotomy. At this point, the hip was dislocated. We removed the broken femoral head. We performed a new osteotomy of the femoral neck. We then began femoral preparation by reaming. We reamed to a size 6. We then broached to a size 6. This gave a stable fit. We trialed off the broach. A +5 femoral head gave yazidi of leg length and stability. Again, we dislocated the hip, removed the trial implants, and placed our final components. The hip was again reduced after the femoral head was impacted. We thoroughly irrigated once more. We then closed, a #5 Ethibond suture was used to close the capsule and piriformis tendon followed by #2 Vicryl suture, 2-0 Vicryl suture, and jonathan for the skin. A sterile dressing was applied. The patient was taken to the recovery room in good condition without complication. Job ID: [id number]
[2018-07-12] MEDS ORDERED: PHENYLEPHRINE-NS 100 MCG/ML 10 ML SYRINGE ONE (16:43)
[2018-07-12] MEDS ORDERED: Rocuronium Bromide 10 MG/ML (10ML VIAL) ONE (16:43)
[2018-07-12] MEDS ORDERED: Lidocaine 1% PF 5 ML VIAL ONE (16:43)
[2018-07-12] MEDS ORDERED: Esmolol 100 MG/10 ML VIAL ONE (16:43)
[2018-07-12] MEDS ORDERED: Ondansetron PF 4 MG/2 ML Vial ONE (16:43)
[2018-07-12] MEDS ORDERED: PROPOFOL 200 MG/20 ML VIAL ONE (16:43)
[2018-07-12] MEDS ORDERED: Glycopyrrolate 0.2 MG/ML 5 ML SYRINGE ONE (16:43)
[2018-07-12] MEDS ORDERED: Morphine 2 MG/ML SYRINGE SLOW IVP PRN (17:24)
[2018-07-12] MEDS ORDERED: traMADol HCl 50 MG TAB PO PRN (17:24)
--- NOTE | 2018-07-12 19:01 | RAD ---
LEFT HIP ONE VIEW: HISTORY: Postop. FINDINGS: Cross-table lateral view shows a total hip prosthesis, which appears to be in good position. IMPRESSION: Placement of a total hip prosthesis. No fracture. POS: [facility]
--- NOTE | 2018-07-12 19:09 | RAD ---
AP PELVIS: HISTORY: Postop. FINDINGS: The bones are demineralized. A left hip prosthesis has been placed, which is in good position. No e vidence of fracture. IMPRESSION: Placement of left hip prosthesis. POS: [facility]
[2018-07-12] MEDS: CEFAZOLIN 2 GM/50 ML-DEXTROSE 2 GM in Premix Bag 1 BAG IVPB SCH (21:53)
[2018-07-13 05:04] LABS: #Basophils 0.1 thou/uL (0.0-0.2); #Eosinphils 0.3 thou/uL (0.0-0.7); #Lymphocytes 1.4 thou/uL (1.20-3.40); #Monocytes 0.7 thou/uL (0.11-0.59); #Neutrophils 5.3 thou/uL (1.40-6.50); %Eosinophils 3.4 % (0.0-10.0); %Lymphocytes 17.4 % (21.0-51.0); %Monocytes 9.5 % (0.0-10.0); %Neutrophils 68.8 % (42.0-75.0); Hemoglobin 10.1 g/dL (12.0-16.0); Mean Corpuscular HGB CONC 31.9 g/dL (32.0-36.0); Mean Corpuscular Hemoglobin 32.1 pg (27.0-31.0); Mean Platelet Volume 7.8 fL (7.4-10.4); Platelet Count 219 thou/uL (130-400); Red Blood Cell (RBC) Count 3.14 mill/uL (4.20-5.40); White Blood Cell (WBC) Count 7.8 thou/uL (4.8-10.8)
[2018-07-13 05:35] LABS: Anion Gap 12 mmol/L (10-20); BUN (Urea Nitrogen) 4 mg/dL (9.8-20.1); Calc. Creatinine Clearance 56 mL/min (70-130); Calcium 8.3 mg/dL (7.8-10.44); Carbon Dioxide 18 mmol/L (23-31); Chloride 105 mmol/L (98-107); Estimated GFR-MDRD Greater than 90; Glucose 90 mg/dL (80-115); Magnesium 1.4 mg/dL (1.6-2.6); Phosphorus 2.6 mg/dL (2.3-4.7); Potassium 3.3 mmol/L (3.5-5.1); Sodium 132 mmol/L (136-145)
[2018-07-13] MEDS: Sodium Chloride 0.9% 1,000 ML IV SCH (06:04)
[2018-07-13] MEDS: Levothyroxine Sodium 100 MCG TAB PO SCH (06:04)
[2018-07-13] MEDS: Oxazepam 10 MG CAP PO SCH ×3 (06:04→20:59)
[2018-07-13] MEDS: CEFAZOLIN 2 GM/50 ML-DEXTROSE 2 GM in Premix Bag 1 BAG IVPB SCH (06:06)
[2018-07-13] MEDS ORDERED: Potassium Phosphate 30 MMOL, Magnesium Sulfate 2 GM in Sodium Chloride 0.9% 250 ML 250 ML IVPB SCH (07:15)
[2018-07-13] MEDS ORDERED: Magnesium 2 GM/50 ML 2 GM in Premix Bag 1 BAG IVPB SCH (07:15)
[2018-07-13] MEDS: Lisinopril 10 MG TAB PO SCH (08:03)
[2018-07-13] MEDS: Famotidine/PF 20 mg/2ml Vial SLOW IVP SCH (08:03)
[2018-07-13] MEDS: traMADol HCl 50 MG TAB PO PRN (08:03)
[2018-07-13] MEDS: Folic Acid 1 MG TAB PO SCH (08:05)
[2018-07-13] MEDS: Aspirin 81 mg Enteric Coated Tablet PO SCH (08:05)
[2018-07-13] MEDS: Senokot S 8.6-50 MG TAB PO SCH ×2 (08:05→20:33)
[2018-07-13] MEDS: Polyethylene Glycol 3350 17 GM Packet PO SCH (08:06)
[2018-07-13] MEDS: Acetaminophen 500 MG TAB PO SCH ×3 (08:06→20:33)
[2018-07-13] MEDS: Famotidine 20 MG TAB PO SCH ×2 (08:43→20:33)
[2018-07-13] MEDS: traMADol HCl 50 MG TAB PO SCH ×3 (10:38→22:43)
--- NOTE | 2018-07-13 13:12 | PRG ---
DATE OF SERVICE: 07/13/2018 SUBJECTIVE: This is a 68-year-old female, who was admitted for fall from standing with left femoral fracture postoperative day one, status post left hip arthroplasty. The patient was resting comfortably. She reports her pain is fairly controlled and she exhibits no signs of acute alcohol withdrawal. She denies any nausea, vomiting, or diarrhea. OBJECTIVE: VITAL SIGNS: Temperature 97.4, pulse 70, respirations 16, O2 saturation 96% on room air, and blood pressure 144/69. General: Well-appearing, middle-aged female, lying in bed on her back, not in acute distress. NEUROLOGIC: GCS 15, alert and oriented x3. Gross motor sensation intact. PULMONARY: No signs of acute distress. Equal chest rise and fall. LUNGS: Clear bilaterally. HEART: Regular rate and rhythm with no murmurs, rubs, or gallops. GI: Abdomen is soft, nontender, and nondistended with positive bowel sounds. EXTREMITIES: Left thigh in postoperative dressing. Gross motor sensation intact. No significant swelling or acute signs of infection or bleeding noted. LABORATORY FINDINGS: WBC 7.8, hemoglobin 10.1, hematocrit 31.5, MCV 101. Sodium 132, potassium 3.3, carbon dioxide 18, creatinine 0.59, GFR greater than 90, phosphorus 2.6, magnesium 1.4. DIAGNOSTIC IMAGING: There is no new diagnostic imaging to review today. ASSESSMENT: 1. Multiple recent falls. 2. Left femoral neck fracture, status post left hip arthroplasty, postoperative day one. 3. Hyponatremia, stable. 4. Hypokalemia. 5. Hypophosphatemia. 6. Hypomagnesemia. 7. History of alcohol abuse. 8. Hypertension. 9. Hypothyroidism. 10. Recent transient ischemic attack. 11. Macrocytic anemia secondary to chronic alcohol abuse. PLAN: 1. Continue with current pain regimen including Tylenol, ibuprofen with tramadol p.r.n. for breakthrough pain. We will transition all medications to p.o. and discontinue all IV options. 2. Restart on home aspirin 81 mg daily. 3. Chronic nutritional deficiency state secondary to chronic alcohol abuse, start on daily thiamine and folic acid. 4. Macrocytic anemia, see above. 5. Replace magnesium, potassium, and phosphorus. 6. Placement: Continue inpatient rehab placement. This patient was seen and assessed by Dr. Jeancarlos Garcia, who agrees with the plan above. Job ID: [id number]
[2018-07-13] MEDS: Ibuprofen 600 MG TAB PO SCH ×2 (13:46→18:21)
[2018-07-14] MEDS: Ibuprofen 600 MG TAB PO SCH ×2 (00:09→04:21)
[2018-07-14] MEDS: Acetaminophen 500 MG TAB PO SCH ×4 (02:39→20:18)
[2018-07-14] MEDS: Levothyroxine Sodium 100 MCG TAB PO SCH (04:21)
[2018-07-14] MEDS: traMADol HCl 50 MG TAB PO SCH ×4 (04:22→23:35)
[2018-07-14] MEDS: Oxazepam 10 MG CAP PO SCH ×3 (05:12→20:18)
[2018-07-14 07:51] LABS: Anion Gap 12 mmol/L (10-20); BUN (Urea Nitrogen) 4 mg/dL (9.8-20.1); Calc. Creatinine Clearance 68 mL/min (70-130); Calcium 8.7 mg/dL (7.8-10.44); Carbon Dioxide 22 mmol/L (23-31); Chloride 107 mmol/L (98-107); Estimated GFR-MDRD Greater than 90; Glucose 103 mg/dL (80-115); Magnesium 1.6 mg/dL (1.6-2.6); Phosphorus 3.2 mg/dL (2.3-4.7); Potassium 3.5 mmol/L (3.5-5.1); Sodium 137 mmol/L (136-145)
[2018-07-14] MEDS: Famotidine 20 MG TAB PO SCH ×2 (08:07→20:18)
[2018-07-14] MEDS: Aspirin 81 mg Enteric Coated Tablet PO SCH (08:07)
[2018-07-14] MEDS: Lisinopril 10 MG TAB PO SCH (08:08)
[2018-07-14] MEDS: Folic Acid 1 MG TAB PO SCH (08:08)
[2018-07-14] MEDS: Polyethylene Glycol 3350 17 GM Packet PO SCH (08:09)
[2018-07-14] MEDS: Senokot S 8.6-50 MG TAB PO SCH ×2 (08:09→20:18)
[2018-07-14] MEDS ORDERED: Enoxaparin Sodium 40 MG/0.4 ML SYRINGE SC SCH (09:00)
[2018-07-14] MEDS: Cyclobenzaprine 10 MG TAB PO PRN (12:05)
[2018-07-14] MEDS: Ibuprofen 200 MG TAB PO SCH ×3 (12:11→23:34)
--- NOTE | 2018-07-14 13:58 | PRG ---
DATE OF SERVICE: 07/14/2018 SUBJECTIVE: The patient is currently on the medical floor. She is overflowed from the surgical floor. She is status post ground level fall, which she sustained a left femoral neck fracture, which she has undergone operative procedure, specifically left hip arthroplasty. The patient tolerated this procedure well. She started working with Physical and Occupational Therapy, and she is currently awaiting insurance approval for inpatient rehab. The patient had no issues overnight. Currently, states that her pain is controlled. She is tolerating a diet. OBJECTIVE: VITAL SIGNS: Temperature is 97.5, heart rate 71, blood pressure 116/63, respirations 16, and oxygen saturation is 96% on room air. GENERAL: The patient is resting comfortably in bed. She is awake, alert, and oriented x3. LUNGS: Clear to auscultation with good inspiratory and expiratory effort. HEART: Regular rate and rhythm. ABDOMEN: Soft, flat, and nontender with active bowel sounds. EXTREMITIES: Neurovascularly intact x4. Postop dressing is clean, dry, and intact. LABORATORY FINDINGS: Sodium 137, potassium 3.5, chloride 107, CO2 of 22, BUN 4, creatinine 0.49, glucose 103, magnesium 1.6, and phosphorus 3.2. DIAGNOSTIC STUDIES: There are no radiographs to review this morning. ASSESSMENT AND PLAN: 1. Status post fall. 2. Status post left hip arthroplasty. 3. Hypomagnesemia. 4. Multiple comorbidities. PLAN: Plan will be to replace her magnesium. Continue supportive care. Physical and Occupational Therapy and await final placement determination. The patient was evaluated with Dr. Garcia during rounds this morning. Job ID: [id number]
[2018-07-15] MEDS: Acetaminophen 500 MG TAB PO SCH ×4 (03:37→21:10)
[2018-07-15] MEDS: Ibuprofen 200 MG TAB PO SCH ×3 (05:32→22:42)
[2018-07-15] MEDS: Oxazepam 10 MG CAP PO SCH ×3 (05:32→22:41)
[2018-07-15] MEDS: Levothyroxine Sodium 100 MCG TAB PO SCH (05:32)
[2018-07-15] MEDS: traMADol HCl 50 MG TAB PO SCH ×3 (05:33→16:53)
[2018-07-15] MEDS ORDERED: Ondansetron ODT 4 MG TAB PO PRN (07:04)
[2018-07-15 07:50] LABS: Anion Gap 14 mmol/L (10-20); BUN (Urea Nitrogen) 6 mg/dL (9.8-20.1); Calc. Creatinine Clearance 65 mL/min (70-130); Calcium 8.9 mg/dL (7.8-10.44); Carbon Dioxide 24 mmol/L (23-31); Chloride 105 mmol/L (98-107); Estimated GFR-MDRD Greater than 90; Glucose 80 mg/dL (80-115); Magnesium 1.6 mg/dL (1.6-2.6); Phosphorus 3.7 mg/dL (2.3-4.7); Potassium 3.7 mmol/L (3.5-5.1); Sodium 139 mmol/L (136-145)
[2018-07-15] MEDS ORDERED: Milk Of Magnesia 30 ML UDCUP PO SCH (09:00)
[2018-07-15] MEDS: Aspirin 81 mg Enteric Coated Tablet PO SCH ×2 (09:19→21:10)
[2018-07-15] MEDS: Famotidine 20 MG TAB PO SCH ×2 (09:20→21:10)
[2018-07-15] MEDS: Folic Acid 1 MG TAB PO SCH (09:20)
[2018-07-15] MEDS: Lisinopril 10 MG TAB PO SCH (09:20)
[2018-07-15] MEDS: Senokot S 8.6-50 MG TAB PO SCH ×2 (09:23→21:10)
[2018-07-15] MEDS: Polyethylene Glycol 3350 17 GM Packet PO SCH (09:24)
[2018-07-15] MEDS: Cyclobenzaprine 10 MG TAB PO PRN ×2 (09:28→16:59)
[2018-07-15] MEDS: traMADol HCl 50 MG TAB PO PRN (11:01)
[2018-07-16] MEDS: traMADol HCl 50 MG TAB PO SCH ×2 (00:18→05:23)
[2018-07-16] MEDS: Acetaminophen 500 MG TAB PO SCH ×3 (02:13→14:47)
[2018-07-16] MEDS: Levothyroxine Sodium 100 MCG TAB PO SCH (05:20)
[2018-07-16] MEDS: Ibuprofen 200 MG TAB PO SCH ×2 (05:20→14:47)
[2018-07-16] MEDS: Oxazepam 10 MG CAP PO SCH ×2 (05:57→14:48)
[2018-07-16] MEDS: Famotidine 20 MG TAB PO SCH (08:25)
[2018-07-16] MEDS: Folic Acid 1 MG TAB PO SCH (08:26)
[2018-07-16] MEDS: Aspirin 81 mg Enteric Coated Tablet PO SCH (08:26)
[2018-07-16] MEDS: Lisinopril 10 MG TAB PO SCH (08:27)
[2018-07-16] MEDS: Senokot S 8.6-50 MG TAB PO SCH (08:28)
[2018-07-16] MEDS: Polyethylene Glycol 3350 17 GM Packet PO SCH (08:28)
[2018-07-16] MEDS ORDERED: traMADol HCl 50 MG TAB PO PRN (08:30)
[2018-07-16 15:38] VITALS: BP 159/75; TEMP 98
--- NOTE | 2018-07-16 18:38 | DIS ---
DATE OF ADMISSION: 07/11/2018 DATE OF DISCHARGE: 07/16/2018 ADMITTING PHYSICIAN: Jeancarlos Garcia DO CONSULTING PHYSICIAN: Art Mojica MD, Orthopedic Surgery. PROCEDURES: 1. On 07/11/2018, hip x-ray, left femoral neck fracture. 2. On 07/11/2018, pelvis x-ray, left femoral neck fracture. 3. On 07/11/2018, brain CT, no acute intracranial abnormalities present. Prominent small-vessel disease. 4. Chest x-ray on 07/11/2018, no evidence of acute cardiopulmonary disease. 5. 07/11/2018, cervical spine CT, impression, degenerative changes cervical spine. No acute osseous abnormalities are demonstrated. PRIMARY DIAGNOSIS: Left femoral neck fracture. SECONDARY DIAGNOSES: 1. Multiple recent falls, hypochloremic hyponatremia secondary to dehydration. 2. Alcohol abuse. 3. History of hypertension. 4. Hypothyroidism. 5. Recent transient ischemic attack. DISCHARGE MEDICATIONS: 1. Tylenol 500 mg q.6 hours. 2. Aspirin 81 mg p.o. b.i.d. 3. Flexeril 5 mg p.o. t.i.d. 4. Folic acid 1 mg p.o. daily. 5. Ibuprofen 400 mg q.8 hours. 6. Synthroid 100 mcg p.o. daily. 7. Lisinopril 10 mg p.o. daily. 8. Zofran ODT 4 mg q.6 hours as needed. 9. Serax 10 mg p.o. q.8 hours. 10. MiraLAX 17 g p.o. daily. 11. Senna/Docusate 2 tabs p.o. b.i.d. 12. Thiamine 100 mg p.o. daily. 13. Tramadol 50 mg 1-2 tabs p.o. q.6 hours as needed for pain. There are no discontinued medications. HISTORY OF PRESENT ILLNESS/HOSPITAL COURSE: This is a 68-year-old female, who presented to the emergency room after falling/mechanical fall with left-sided hip pain. The patient had recent falls approximately four times over the past two weeks. It was reported that she felt that her legs were weak, was the reason for her falling. She denies any loss of consciousness or striking her head. She denied any palpitations, lightheadedness, or dizziness. The patient reports being a daily drinker, consuming approximately 4-6 beers a day. The patient received an echocardiogram on 07/11 with left ventricle ejection fraction estimated at 55%-60% suggesting diastolic dysfunction, right ventricle normal size and function, left atrium normal size, right atrium normal size, mild mitral regurgitation, structurally normal aortic valve, mild tricuspid regurgitation. The patient was taken to the OR on 07/12/2018, by Dr. Mojica for a left hip hemiarthroplasty/bipolar. The patient has been working with Physical Therapy since her procedure. The patient has had an extended length of stay due to awaiting insurance approval for inpatient rehab. The patient was initially denied and was approved today for nursing home facility at [facility]. The patient is postop day #4. The patient had no overnight events. On the day of discharge, the patient was seen and evaluated by Dr. Garcia during morning rounds. The patient had no complaint and reports pain being well controlled. The patient's vital signs were stable on the day of discharge. The patient's physical exam was unremarkable including cardiopulmonary and GI exam. The patient was deemed stable for discharge to a nursing home facility, [facility] for continued physical and occupational therapy. DISPOSITION: Stable. DISCHARGE INSTRUCTIONS: LOCATION: [facility]. DIET: Regular diet. ACTIVITY: 1. Orthopedic limitations posterior hip precautions. 2. The patient to use a walker for ambulation. FOLLOWUP: Follow up with Dr. Garcia as needed. Follow with Dr. Mojica in 10 days. Job ID: [id number]
== END 2018-07-16 15:38 | DRG 470 ==
LOC: ERS 08:53 → SURG B 10:21 → 2NO 16:08 → T4-A 07-13 11:56
PROVIDERS: ADMIT Surgery; ATTEND Surgery
PROC: 0SRS0JZ Replacement of Left Hip Joint, Femoral Surface with Synthetic Substitute, Open Approach (ICD-10-PCS; principal; 2018-07-12)
DX: S72.002A Fracture of unspecified part of neck of left femur, initial encounter for closed fracture (principal); E87.1 Hypo-osmolality and hyponatremia; W18.30XA Fall on same level, unspecified, initial encounter; R29.6 Repeated falls; E86.0 Dehydration; E03.9 Hypothyroidism, unspecified; I10 Essential (primary) hypertension; E87.6 Hypokalemia; F10.10 Alcohol abuse, uncomplicated; E83.42 Hypomagnesemia; E83.39 Other disorders of phosphorus metabolism; D53.9 Nutritional anemia, unspecified; I34.0 Nonrheumatic mitral (valve) insufficiency; I07.1 Rheumatic tricuspid insufficiency; M50.30 Other cervical disc degeneration, unspecified cervical region; F17.210 Nicotine dependence, cigarettes, uncomplicated; Z86.73 Personal history of transient ischemic attack (TIA), and cerebral infarction without residual deficits; Z88.8 Allergy status to other drugs, medicaments and biological substances; Z79.82 Long term (current) use of aspirin; Z79.899 Other long term (current) drug therapy
CPT/HCPCS: 36415; 36416; 70450; 71045; 72125; 72170; 80048; 80053; 80307; 83605; 83735; 84100; 84484; 85025; 93005; 93306; 96374; 96375; J0131; J1650; J2001; J2250; J2270; J2405; J2704; J3010; J3411; J3475; J7050; S0028